=== PATIENT | male | born 2005 | race African-American/Black ===

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

== ENCOUNTER 2023-02-01 16:18 | Emergency (ER) | payer OTHER ==
--- NOTE | 2023-02-01 17:12 | ERPHSYRPT ---
- History of Present Illness Time Seen by Provider: 02/01/23 16:35 Source: patient Exam Limitations: no limitations Patient Subjective Stated Complaint: C/O left sided head pain for the past few months Triage Nursing Assessment: Patient ambulated back to ER without difficulties. No SOB. He is alert and oriented. Patient wears glasses; states he has not had any recent eyewear prescription changes. Denies any injuries to head. Physician History: Patient is a 17-year-old white male who presents with a complaint of a headache on and off for 2 months. He describes the pain as left-sided and sharp. He also notes some blurred vision and floaters in his visual cash. Also complains of a bump on the back of his neck on the left side which changes in size over time. Going bigger and going smaller. His headaches seem worse at night. Timing/Duration: week(s) (8) Quality: sharpness Head Pain Location: parietal (Left parietal area) Severity of Pain-Max: moderate Severity of Pain-Current: moderate Recent Head Trauma: no recent headache/trauma, chronic headaches Previous symptoms: same symptoms as today Allergies/Adverse Reactions: Penicillins Adverse Reaction (Verified 02/01/23 16:22) Hx Tetanus, Diphtheria Vaccination/Date Given: Yes Hx Influenza Vaccination/Date Given: No Hx Pneumococcal Vaccination/Date Given: No Travel Risk - International Travel Have you traveled outside of the country in past 3 weeks: No - Coronavirus Screening Are you exhibiting any of the following symptoms?: No Close contact with a COVID-19 positive Pt in past 14-21 Days: No - Vaccine Status Have you recieved a Covid-19 vaccination: Yes Maintenance Clerk: [employer] - Vaccination Dates Date of 2cond Vaccination (if applicable): unknown - Review of Systems Constitutional: No Fever, No Chills Eyes: No Symptoms Ears, Nose, & Throat: No Symptoms Respiratory: No Cough, No Dyspnea Cardiac: No Chest Pain, No Edema, No Syncope Abdominal/Gastrointestinal: No Abdominal Pain, No Nausea, No Vomiting, No Diarrhea Genitourinary Symptoms: No Dysuria Musculoskeletal: No Back Pain, No Neck Pain Skin: No Rash Neurological: Headache, No Dizziness, No Focal Weakness, No Sensory Changes Psychological: No Symptoms Endocrine: No Symptoms All Other Systems: Reviewed and Negative - Past Medical History Pertinent Past Medical History: No - Past Surgical History Past Surgical History: No - Social History Smoking Status: Never smoker Exposure to second hand smoke: No Drug Use: none Patient Lives Alone: No - Nursing Vital Signs Nursing Vital Signs: Initial Vital Signs Pulse Rate 73 02/01/23 16:22 Respiratory Rate 18 02/01/23 16:22 Blood Pressure 164/85 02/01/23 16:22 O2 Sat by Pulse Oximetry 98 02/01/23 16:22 Pain Scale Pain Intensity 2 - Physical Exam General Appearance: no apparent distress Eye Exam: PERRL/EOMI Ears, Nose, Throat Exam: normal ENT inspection, moist mucous membranes Neck Exam: normal inspection, supple, full range of motion, No meningismus Respiratory Exam: normal breath sounds, lungs clear Cardiovascular Exam: regular rate/rhythm, normal heart sounds Gastrointestinal/Abdominal Exam: soft, No tenderness, No distention Back Exam: normal inspection, normal range of motion Mental Status Exam: alert, oriented x 3, 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 Exam: normal speech, PERRL, No facial droop Coordination/Gait Exam: normal cerebellar function Motor/Sensory Exam: no motor deficit, no sensory deficit Skin Exam: normal color, warm, dry, No rash SpO2: 97 - Course Nursing assessment & vital signs reviewed: Yes - CT Exams Head CT Interpretation: Negative Ordered Tests: Active Orders 24 hr Category Date Time Status HEAD WITHOUT CONTRAST [CT] Stat Exams 02/01/23 16:31 Taken - Progress Progress: improved Air Movement: good Blood Culture(s) Obtained: No Antibiotics given: No Medical Desision Making - Diagnostic Testing Radiological Interpretation: Reviewed by me - Risk of complications Minimal Risk: Minimal risk of morbidity - Departure Departure Disposition: Home Clinical Impression: Headache Condition: Stable Critical Care Time: No Instructions: Headache, Adult (DC) Prescriptions: Diclofenac Sodium 50 mg [Voltaren 50 mg] 50 mg PO TID 10 Days #30 tablet
[2023-02-01 18:46] VITALS: O2SAT 97
[2023-02-01 18:50] VITALS: BP 103/77; PULSE 70
--- NOTE | 2023-02-03 08:38 | XRAY ---
Indication: Headache. Multiple contiguous axial images obtained through the head without contrast. Comparison: None Normal appearing brain parenchyma, ventricles, and bony calvarium. Visualized paranasal sinuses and mastoid air cells are clear. Impression: Normal CT head without contrast exam.
== END 2023-02-01 18:54 | disposition home or self-care (01) ==
LOC: ED 16:18
DX: R51.9 Headache, unspecified (principal); H53.8 Other visual disturbances; R22.1 Localized swelling, mass and lump, neck
CPT/HCPCS: 70450; 99283